=== PATIENT | male | born 1935 | race Caucasian/White ===

== ENCOUNTER → 2019-08-07 13:46 | Outpatient (BNVA) | payer MEDICARE, SELFPAY | PROVIDERS: Family Provider Family Medicine; PCP Family Medicine; Visit Provider Urology | DX: C61 Malignant neoplasm of prostate (principal); N39.45 Continuous leakage; N49.2 Inflammatory disorders of scrotum | CPT/HCPCS: 81001 ==

== ENCOUNTER → 2019-11-22 14:35 | Outpatient (BNVA) | payer MEDICARE, SELFPAY | PROVIDERS: Family Provider Family Medicine; PCP Family Medicine; Visit Provider Internal Medicine | DX: Z11.59 Encounter for screening for other viral diseases (principal) | CPT/HCPCS: 87635 ==

== ENCOUNTER 2019-11-25 07:04 | Day surgery (SDC) | payer MEDICARE, SELFPAY ==
[2019-11-22 15:22] LABS: Hematocrit 44.1 % (42.0-52.0); Hemoglobin 14.6 g/dL (11.7-16.6); Mean Corpuscular HGB Conc 33.1 g/dL (30.0-36.0); Mean Corpuscular Hemoglobin 31.3 pg (28.0-34.0); Mean Corpuscular Volume 94.4 fL (80-94); Mean Platelet Volume 9.6 fL (7.4-10.4); Platelet Count 187 10^3/cmm (130-400); Red Blood Count 4.67 10^6/uL (4.1-5.3); Red Cell Distribution Width 12.7 % (12.1-15.1); White Blood Count 11.1 10^3/uL (4.0-10.0)
[2019-11-22 15:39] LABS: Anion Gap 13.5 (5-19); Blood Urea Nitrogen 25 mg/dL (8-23); Calcium 8.6 mg/dL (8.5-10.5); Carbon Dioxide 23 mmol/L (22-29); Chloride 105 mmol/L (98-107); Glucose 116 mg/dL (65-115); Osmolality Calculated 289 mOsm/kg (285-295); Potassium 4.5 mmol/L (3.5-5.1); Sodium 137 mmol/L (136-145)
[2019-11-22 15:41] LABS: INR 0.96 (0.8-1.2)
[2019-11-22 16:37] LABS: Slide Review Slide Review Perform
[2019-11-22 16:40] LABS: Absolute Segmented Neutrophil 4.1 10/cmm (1.6-7.1); Lymphocytes 50 %; Lymphocytes Absolute 6.3 10^3/cmm (1.2-3.4); Monocytes Absolute 0.4 10^3/cmm (0.1-0.6); Segmented Neutrophils 37 %; Total Cells Counted 100 (0-100)
[2019-11-22 16:41] LABS: Platelet Estimate Normal (Normal)
[2019-11-25] VITALS (23 sets, daily range): BP systolic 106–135; BP diastolic 55–71; PULSE 52–69; RESP 13–27; TEMP 36.6–36.9; O2SAT 93–97; BMI 34.0
--- NOTE | 2019-11-25 09:01 | XACV_ITS ---
Exam Room: [facility] Ht: 152 cm Wt: 108 kg BSA: 2.20 m2 Gender: Male : 1935 Any Known Allergies: No known allergies Exam Priority: Routine Procedure(s): Procedure Description: Diagnostic procedure Procedure Description: PCI procedure Procedure Description: Drug Eluting Coronary Stent Procedure Description: PTCA Procedure Description: Coronary Angiography Diagnostic Cath Status: Elective Diagnostic Findings LM has minor luminal irregularities. CX gives rise to 2 OM branches. There is no significant stenosis noted in the left circumflex system. pLAD: Mild 20% stenosis, KELSEY: 3 flow. It gives rise to a large diagonal vessel which has no significant stenosis. The RCA is a large vessel. Mid Right Coronary Artery: Severe 95% stenosis, KELSEY: 3 flow. Left main gives rise to a ramus branch. This vessel does not have any significant stenosis. Coronary angiography shows right dominance. PCI Status: Elective PCI Indication: Other Interventional Findings Indication: Worsening angina and abnormal stress test. We engaged the RCA with JR4 guide catheter. A 0.014 run-through guidewire was used to cross the lesion. We used a 2.75 x 8 semi-compliant balloon to predilate the stenosis. This was followed by placement of a 3.5 x 12 mm drug-eluting stent. We postdilated the stent with the help of a 3.75 x 8 mm NC balloon. At this time final angiogram was performed that showed excellent stent expansion, KELSEY-3 flow and no residual stenosis. Guidewire and guide catheter were removed. Radial sheath was removed and TR band was applied to obtain hemostasis. Mid Right Coronary Artery: 95% stenosis treated with AB TREK 2.75X8 RX BALLOON, MATTHEW Santamaria MADELINE 3.5X12 DEMARIO, and MDJosé Antonio WHITAKER EUPHORA RX [id number] BALLOON. 0% residual stenosis, KELSEY: 3 flow. Conclusions There is severe single vessel coronary artery disease. Mid Right Coronary Artery was treated with two Balloon and Drug Eluting Stent. Recommendations Aspirin and Plavix for at least 1 year. High intensity statin therapy with atorvastatin 40 mg daily. Interventional RX Recommendation: PCI w/o planned CABG Diagnostic RX Recommendation: PCI w/o planned CABG Anticoagulation: Heparin Pressures Phase:Rest AO : 107 mmHg / 61 mmHg ( 82 mmHg ) @ 4:30:00 AM 119 mmHg / 119 mmHg ( 94 mmHg ) @ 4:34:00 AM 118 mmHg / 70 mmHg ( 92 mmHg ) @ 4:39:00 AM 123 mmHg / 63 mmHg ( 89 mmHg ) @ 4:53:00 AM Clinical Evaluation EBL: 5mL-10mL Procedural Details Procedure Consent Obtained. Pre-Procedure Time Out. Identified patient by full name and date of as verbalized by the patient/guarantor. Does the consent match the physician's order: Yes. Accurate & Complete Informed Consent: Yes. Inpatient/Outpatient History & Physical on Chart: Yes. If H&P is completed, is and addenduem needed: N/A; If yes, is the addendum complete: N/A. Visualize and Verify Site with Patient/Guarantor: N/A. Relevant Radiology Images available: Yes. Pre-op teaching completed and patient verbalized understanding. The risks, benefits, and alternatives of sedation and/or procedure were discussed by physician. The patient agrees to continue. Procedure started. Correct patient, site and procedure confirmed by cath team. PERRLA. Strong, equal hand history teacher bilaterally. Lungs clear x 5 lobes. IV Site on Arrival: 18 gauge in the left anticubital. IV Fluids: 0.9% NaCl at KVO. 0 mL infused prior to lab associate. Oxygen started at 2liters/min via nasal canula. right groin was prepped with chloroprep then draped in the usual sterile fashion. right radial was prepped with chloroprep then draped in the usual sterile fashion. Physician notified. Baseline sample Acquired. HR: 80 BPM. Physician arrived. Physician scrubbed in. Immediate Pre-Procedure Time Out. Correct Patient: Yes; Correct Procedure: Yes; Correct Site: Yes; Correct Patient Position: Yes; Correct Supplies: Yes; Dried Flammable Prep: Yes; Blood Products Available: No;. Lidocaine 1% infiltrated to the right radial. Equipment: 6F - Radial. Cardiac Cath Pack. FM Global Manifold Kit Model BT 2000. Heparinized Saline (2 units/mL), 1000 mL bag. Arterial access obtained. A 5 norwegian TIG catheter in over wire. Multiple views taken of right coronary artery. Catheter out. A 5 norwegian JL4 catheter in over wire. Multiple views taken of left coronary artery. Catheter out. Patient's family unavailable. Inventory is TR 180cm Runthrough NS extra floppy 0.014 wire. 6 norwegian JR 4 guide catheter was inserted over the wire. Runthrough guidewire was advanced through the guide catheter to lesion in the mid RCA. ACT drawn. Results 306 seconds. Therapeutic limits - pre-heparin administration 90-150 seconds and monitoring heparin during a vascular procedure >250 seconds. Inflation number : 1 A AB TREK 2.75X8 RX BALLOON was prepped and advanced across the Mid RCA , then inflated to 8 RAFAT for 0:23 seconds. Inflation number: 2 The AB TREK 2.75X8 RX BALLOON was reinflated across the Mid RCA, to 10 RAFAT for 0:21 seconds. Balloon out. Patient's family updated. Inflation Number : 3 A MATTHEW Santamaria MADELINE 3.5X12 DEMARIO -Lot Number# [id number] expiration 05/17/21 was prepped and advanced across the Mid RCA. The stent was deployed at 12 RAFAT for 0:19 seconds. Stent balloon out over wire. Angiography performed. Inflation number : 4 A MATTHEW WHITAKER EUPHORA RX [id number] BALLOON was prepped and advanced across the Mid RCA , then inflated to 16 RAFAT for 0:21 seconds. Balloon out. Wire out. Guide catheter out. TR band placed. Hemostasis obtained. A TR Band was successful obtaining hemostatsis at the Right Radial artery insertion site. Post Procedure: Pulses reassessed and unchanged. PERRLA. Strong, equal hand history teacher bilaterally. No VTE prophylaxis required. Fluoro: 10:06. Contrast type used: Omnipaque 300 mgI/mL, 500 mL bottle. [id number]. Complications: none. Estimated blood loss: 5mL-10mL. Procedure completed. Patient transferred by bed to CPRU. Medication's Wasted: Nitro = 49.8 mg. Medication's Wasted: Lidocaine 1% = 18 mL. Medication's Wasted: Heparin = 3000 units. Total IV fluids: 100 mL. PCI Indication: New Onset Angina. Post-op diagnosis: severe mid rca stenosis. Vital chart was stopped. Site: Right Radial artery Sheath Size: 6 Fr Hemostasis Method: TR Band Hemostasis Success: Successful Procedure Medications Start: 9:22 AM Stop: 9:22 AM Medication: Versed Amount: 1 mg Route: I.V. Start: 9:22 AM Stop: 9:22 AM Medication: Fentanyl Amount: 50 mcg Route: I.V. Start: 9:25 AM Stop: 9:25 AM Medication: Nitrogylcerin Amount: 200 mcg Route: I.A. Start: 9:27 AM Stop: 9:27 AM Medication: Heparin Amount: 5000 units Route: I.V. Start: 9:35 AM Stop: 9:35 AM Medication: Versed Amount: 1 mg Route: I.V. Start: 9:35 AM Stop: 9:35 AM Medication: Fentanyl Amount: 50 mcg Route: I.V. Start: 9:39 AM Stop: 9:39 AM Medication: Heparin Amount: 2000 units Route: I.V. Start: 9:49 AM Stop: 9:49 AM Medication: Heparin Amount: 1000 units Route: I.V. Start: 9:50 AM Stop: 9:50 AM Medication: Plavix Amount: 600 mg Route: P.O. Start: 9:50 AM Stop: 9:50 AM Medication: Aspirin Amount: 325 mg Route: P.O. I, the attending physician, have reviewed and verified all procedure medications. Yes, all medications given per verbal order History/Risk Factors Hypertension: No Dyslipidemia: No Peripheral Arterial Disease (PAD): No Myocardial Infarction (TX): No Obesity: Yes Renal Disease: No Prior Interventions PCI: No CABG: No Valve Surgery: No Report Signatures Finalized by:Andrea Arrieta MD on 11/25/2019 5:12:45 PM
--- NOTE | 2019-11-25 09:12 | W.PM.OPSUD ---
Surgery/Procedure H&P Update DATE OF PROCEDURE: November 25, 2019 DATE H&P PERFORMED: 11/07/19 H&P UPDATE INFORMATION: I have reviewed H&P completed within last 30 days and I have examined patient prior to procedure CHANGES TO PREVIOUS DOCUMENTATION: Patient was having episodes of chest pain and had a stress test in the past with TID and circumflex territory ischemia. We had recommended doing a coronary angiogram with possible intervention but patient wanted to think about it. Given he was still having chest pain episodes, he has decided to undergo the coronary angiogram with possible intervention. I described in detail the benefits and risks associated with the procedure, including bleeding, infection, abnormal heart rhythm,stroke, heart attack, and . Patient understands the risks and wants to proceed with the procedure. PREOP DIAGNOSIS: Typical chest pain/abnormal stress test PRIMARY INDICATION FOR PROCEDURE: Typical chest pain/abnormal stress test PLANNED PROCEDURE: Operation Date: 11/25/19 08:30 Proposed Procedures p Cardiac Catheterization left and right(Bilateral) - Andrea Arrieta M.D PATIENT REASSESSED PRIOR TO SEDATION, WITH NO CHANGE NOTED: Yes PHYSICAL EXAM: alert, oriented x 3 and clear to auscultation bilaterally AIRWAY EVAL/ANESTHESIA PLAN: normal airway, ASA II, Risks, benefits & alternatives of sedation and/or procedure discussed and Patient agrees to continue as planned
--- NOTE | 2019-11-25 10:17 | PC.CHAP ---
Pastoral Care Encounter/Spiritual Assessment Type of Contact [] Declined hr leader visit [] Patient/Family/Request visit [] Outpatient visit [] Follow-up visit [] Physician referral [] Code/Alert [x] Routine visit [] Staff referral [] Actively dying [] Patient sleeping [] Family support [] [] Out of room [] Palliative care [] [] Receiving care in room [] Pre-surgical visit [] Trauma [] Long length of stay [] ICU visit [] Other: Relational/Emotional Strength [] Patient feels connected with others/family/visitors/staff [] Distress [] Loneliness/isolation [] Abandonment Spirituality of Patient [] Person of Teri [] Attends Zoroastrian of their Teri [] Believes in Prayer [] Reads Bible or Jainism materials [x] There are Spiritual issues to be addressed Farm Loan Inspector Interventions [] Prayer [x] Active listening [x] Non-anxious presence [x] Spiritual/emotional support [] Crisis/trauma care [] Spiritual counseling [] Bereavement support [] Provided bereavement packet [] Provided Bible/devotional materials [] Provided toy/stuffed animal, coloring book to patient or family member [] Provided Communion [] Anointing/[place] [] Salvation [x] Completed spiritual assessment [] Other: Impact on Illness or Injury [] Angry [] Fearful [x] Anxious [] Often cries [] Exhaustion [] Unable to work [] Unable to attend rastafari [] Unable to walk/stand [] Unable to read [] Unable to drive [] Unable to eat/drink [] Unable to sleep [] Unable to be with family [] Patient intubated [] Other: Summary Patient stated that he didn't need anything from the chaplains and declined prayer. He stated that he was hoping to get this over with as soon as possible . Farm Loan Inspector visited with patient for a few minutes and told him that if he needed anything from the chaplains that he could let his nurse know and she would contact us. Patient visited by Farm Loan Inspector Hector Noriega. Time spent with patient 8 minutes
[2019-11-25] MEDS: atorvastatin 40 mg Tablet PO (19:14)
--- NOTE | 2019-11-25 21:59 | PC.NURSE ---
Patient does not have any complaints at this time. Right wrist site WNL. Pulse present. VSS. Will monitor.
[2019-11-26 00:22] VITALS: BP 94/79; PULSE 63; RESP 16; TEMP 36.6; O2SAT 94
--- NOTE | 2019-11-26 01:07 | PC.NURSE ---
Patient ambulated in the asif earlier. Patient is now resting with eyes closed. Will monitor.
--- NOTE | 2019-11-26 03:08 | PC.NURSE ---
Patient has no complaints at this time. Will monitor.
[2019-11-26 04:25] VITALS: BP 115/77; PULSE 59; RESP 24; TEMP 36.6; O2SAT 97
[2019-11-26 05:05] LABS: Basophils # 0.1 10^3/uL (0.0-0.1); Basophils % 0.5 %; Eosinophils # 0.1 10^3/uL (0.0-0.8); Eosinophils % 1.3 %; Hematocrit 42.5 % (42.0-52.0); Hemoglobin 13.6 g/dL (11.7-16.6); Lymphocytes # 4.6 10^3/uL (0.8-4.8); Lymphocytes % 45.1 %; Mean Corpuscular Volume 96.8 fL (80-94); Mean Platelet Volume 10.1 fL (7.4-10.4); Monocytes # 0.7 10^3/uL (0.2-0.9); Neutrophils # 4.63 10^3/uL (1.8-7.7); Neutrophils % 45.6 %; Nucleated Red Blood Cells % 0 %; Platelet Count 143 10^3/cmm (130-400); Red Blood Count 4.39 10^6/uL (4.1-5.3); Red Cell Distribution Width 12.7 % (12.1-15.1); White Blood Count 10.2 10^3/uL (4.0-10.0)
[2019-11-26 05:31] LABS: Anion Gap 15.5 (5-19); Blood Urea Nitrogen 20 mg/dL (8-23); Calcium 8.5 mg/dL (8.5-10.5); Carbon Dioxide 21 mmol/L (22-29); Chloride 104 mmol/L (98-107); Glucose 107 mg/dL (65-115); Osmolality Calculated 285 mOsm/kg (285-295); Potassium 4.5 mmol/L (3.5-5.1); Sodium 136 mmol/L (136-145)
[2019-11-26] MEDS: clopidogrel 75 mg Tablet PO (08:04)
[2019-11-26] MEDS: aspirin 81 mg EC Tablet PO (08:05)
--- NOTE | 2019-11-26 08:45 | PM.SDS ---
Short Stay Summary Providers Date of Admit/Discharge: 11/26/19 Attending Provider: Andrea Arrieta M.D Primary Care Provider: Kg Wright DO Chief Complaint: the [facility] HPI History of Present Illness Eric Bailey is a 84 year old male past medical history of hypertension was scheduled to have coronary angiography with possible intervention because he was having continued chest pain symptoms on exertion and had a prior stress test showing ischemia. Recently he had noted more frequent chest pain symptoms. In the past coronary angiography was offered to him but he did not want to proceed with it however because of increasing symptoms he decided to undergo coronary intervention angiography with possible intervention. We performed coronary angiography that showed 95% stenosis in mid RCA. He underwent percutaneous coronary intervention with a 3.5 x 12 mm drug-eluting stent. He had excellent result with KELSEY-3 flow and no residual stenosis. Patient stayed overnight post procedure and has been stable. This morning he denies any complaints of chest pain, shortness of breath or palpitations. He is on aspirin, Plavix and atorvastatin. His blood pressure tends to run on the lower side. His heart rate is also in late 50s to 60. His right radial access site is normal without any evidence of hematoma. Patient is ready for discharged and will be discharged on aspirin, Plavix and atorvastatin. Review of Systems Narrative: CONSTITUTIONAL: No fever chills weight loss or gain or night sweats. [] HEENT: Normocephalic, atraumatic.[] RESPIRATORY: No cough, sputum, hemoptysis or wheezing.[] CARDIOVASCULAR: No shortness of breath, chest pain, PND, orthopnea, lower extremity edema, presyncope or syncope. [] GI: no nausea vomiting diarrhea. [] WATCHER LOOKOUT TOWER: No numbness, tingling, weakness or loss of function in any part of the body. [] MUSCULOSKELETAL: No knee or joint pain or rashes. [] Home Meds/Allergies Home Medications and Allergies Allergies Allergy/AdvReac Type Severity Reaction Status Date / Time No Known Allergies Allergy Verified 11/19/19 10:03 PFSH Acute PFSH: Medical History Cellulitis of scrotum Colovesical fistula HTN (hypertension) Prostate cancer Urinary incontinence Surgical History Hx of cholecystectomy Hx of knee surgery Hx of prostatectomy Hx of resection of large bowel Family History Father CAD (coronary artery disease) Social History Smoking and tobacco status: never smoked Alcohol intake: current Alcohol intake frequency: holidays/special occasions only Adopted: No Caregiver/support person: No Lives independently: Yes Marital status: Current occupational status: retired History of recent travel: No Vitals/I&O/Wt Last Vital Signs Temp 98 F 11/26/19 04:25 Pulse 59 L 11/26/19 04:25 Resp 24 H 11/26/19 04:25 BP 115/77 11/26/19 04:25 Pulse Ox 97 11/26/19 04:25 11/25/19 11/26/19 11/26/19 22:59 06:59 14:59 Intake Total 240 / 480 300 / 780 480 / 480 Output Total 700 / 1250 375 / 1625 300 / 300 Balance -460 / -770 -75 / -845 180 / 180 Weight last 48 hrs Weight 237 lb 7 oz Physical Exam Narrative: EXAM NARRATIVE: GENERAL: Patient is alert, awake and oriented x3. [] NECK: No jugular vein distension. [] HEENT: No cyanosis. No icterus. No pallor. [] HEART: Regular S1 and S2. No murmur, rub or gallop. [] LUNGS: Clear to auscultate bilaterally. [] ABDOMEN: Soft, nontender and nondistended. Positive bowel sounds. No guarding, rebound or tenderness. [] CENTRAL NERVOUS SYSTEM: Grossly nonfocal. [] EXTREMITIES: Lower extremities with no edema bilaterally. Pulses palpable in the lower extremities, both dorsalis pedis and posterior tibial. [] Hospital Course Admission Diagnoses: Typical chest pain/worsening angina/abnormal stress test Hospital Course: We performed coronary angiography that showed 95% stenosis in mid RCA. He underwent percutaneous coronary intervention with a 3.5 x 12 mm drug-eluting stent. He had excellent result with KELSEY-3 flow and no residual stenosis. Patient stayed overnight post procedure and has been stable. This morning he denies any complaints of chest pain, shortness of breath or palpitations. He is on aspirin, Plavix and atorvastatin. His blood pressure tends to run on the lower side. His heart rate is also in late 50s to 60. His right radial access site is normal without any evidence of hematoma. Patient is ready to be discharged and will be discharged on aspirin, Plavix and atorvastatin. SSS Data Data Completed and Pending: Completed Studies During Hospitalization Category Date Time Status ROADS AND PARKING LOTS SWEEPER OPERATOR request for service Routin e Exams 11/25/19 09:01 Completed Diagnoses at Discharge Discharge Diagnosis (1) Coronary artery disease: Status: Acute (2) HTN (hypertension): Status: Acute (3) S/P coronary angioplasty: Status: Acute Problem details: Severe RCA stenosis s/p PCI with DEMARIO X 1 Discharge Plan Discharge Patient Disposition: Home Condition: Stable Prescriptions: New atorvastatin 40 mg Tablet 40 mg PO BEDTIME Qty: 90 RF: 3 clopidogrel 75 mg Tablet 75 mg PO DAILY Qty: 90 RF: 2 aspirin 81 mg Tablet,Delayed Release (Dr/Ec) 81 mg PO DAILY Qty: 90 RF: 3 Continued nitroglycerin 0.4 mg tablet, sublingual 0.4 mg SUBLINGUAL Q5M PRN (Reason: chest pain) Qty: 50 RF: 2 Discontinued aspirin 325 mg tablet 325 mg PO DAILY RF: 0 Discharge Orders: Discharge Order (Routine); Ordered 11/26/19 Ordered By: Andrea Arrieta Referrals: Andrea Arrieta M.D [Physician] - 1 month (Please, follow-up with Dr. Arrieta on at 3:45p.m. If you have any questions or need to reschedule. Please call ) Alyssa Contreras FNP [Nurse Practitioner] - 7-10 days (Please, follow-up with Alyssa Contreras on Dec.02 at 9:00a.m. If you have any questions or need to reschedule. Please call ) Discharge Diet: Cardiac Discharge Activity: Resume usual activity Patient Instructions: Aspirin (By mouth), Atorvastatin (By mouth), Clopidogrel (By mouth), Left Heart Catheterization (DC), Hypertension (DC), Post Angiogram Home Care Instructions Activity Restrictions/Additional Instructions: Please do not lift more than 5 pounds of weight for the next 5 days Attestations Medical Necessity Statement*: Care not expected to cross 2 midnights. Time Spent in Patient Care*: greater than 30 min Status at Discharge: Cognitive status at discharge: cognitively intact, Behavioral status at discharge: cooperative, Functional status at discharge: independent ambulation Overall status at discharge: patient is back to baseline Quality Metrics Clinical Quality Measures: During this hospital stay, did patient experience: None Coding Level of Care Code Acute Preschool Substitute Teacher for Darinel Fwd Diagnoses Coronary artery disease I25.10 HTN (hypertension) I10 S/P coronary angioplasty Z98.61
[2019-11-26 09:05] VITALS: BP 115/77; PULSE 59; RESP 24; TEMP 36.6; O2SAT 97
== END 2019-11-26 10:29 | disposition home or self-care (01) ==
LOC: CCL 07:04 → CSU 07:27
PROVIDERS: PCP Family Medicine; Visit Provider Internal Medicine
DX: I25.10 Atherosclerotic heart disease of native coronary artery without angina pectoris (principal); I10 Essential (primary) hypertension; Z98.61 Coronary angioplasty status; Z85.46 Personal history of malignant neoplasm of prostate
CPT/HCPCS: 12345; 36415; 80048; 85007; 85025; 85347; 85610; 93454; C1725; C1769; C1874; C1887; C1894; C9600; J1644; J2250; J3010; J3490; J7030; Q9967

== ENCOUNTER → 2019-12-03 10:04 | Outpatient (BNVA) | payer MEDICARE, SELFPAY | PROVIDERS: PCP Family Medicine; Visit Provider Nurse Practitioner Family | DX: I25.119 Atherosclerotic heart disease of native coronary artery with unspecified angina pectoris (principal) | CPT/HCPCS: 80048 ==

== ENCOUNTER → 2019-12-05 09:52 | Outpatient (BNVA) | payer MEDICARE, SELFPAY | PROVIDERS: PCP Family Medicine; Visit Provider Family Medicine | DX: R07.89 Other chest pain (principal); M94.0 Chondrocostal junction syndrome [Tietze] | CPT/HCPCS: 71046 ==

== ENCOUNTER → 2020-03-03 12:17 | Outpatient (BNVA) | payer MEDICARE, SELFPAY | PROVIDERS: PCP Family Medicine; Visit Provider Family Medicine | DX: E03.9 Hypothyroidism, unspecified (principal); I10 Essential (primary) hypertension; R10.9 Unspecified abdominal pain; K57.30 Diverticulosis of large intestine without perforation or abscess without bleeding; Z98.890 Other specified postprocedural states; H61.23 Impacted cerumen, bilateral; R10.10 Upper abdominal pain, unspecified | CPT/HCPCS: 84439; 84443; 85025 ==

== ENCOUNTER 2020-03-30 09:55 | Outpatient (CLI) | payer MEDICARE, SELFPAY ==
--- NOTE | 2020-03-30 11:30 | CT_ITS ---
WS: [id number] CT ABDOMEN PELVIS TECHNIQUE: Noncontrast CT of the abdomen and contrast-enhanced CT of the abdomen and pelvis with philippe nal and sagittal reformatted images. CLINICAL INFORMATION: abdominal pain COMPARISON: CT 01/07/2017 and 11/24/2015 DLP: 1661.[address] scans at [facility] use at least one of these dose optimization techniques: automat ed exposure control; mA and/or kV adjustment per patient size (includes targeted exams where dose is matched to clinical indication); or iterative reconstruction. FINDINGS:Mild circumferential wall thickening involving the right hepatic flexure. Recommend correlat ion for colitis. Colon is otherwise unremarkable. Mild diffuse infiltration liver. Cholecystectomy clips. A few small hepatic cysts. Adrenal glands are normal. No hydronephrosis. Small esophageal hiatal hernia. Lung bases are well aerated. Small splenu le. Normal spleen. Prior postoperative changes partial resection with anastomosis. Prior prostatectom y. Mild sigmoid constipation. Normal caliber abdominal aorta. Mild aortic calcification. No abdominal or pelvic lymphadenopathy. Ti ny fat-containing umbilical hernia. Small bladder diverticulum measuring bilateral ureteral bilateral bladder diverticuli measuring 14 mm on the right and 18 mm on the left. Mild disc space narrowing L5 -S1. CT/CT abdomen pelvis wo/w [id number] IMPRESSION: 1. Mild circumferential wall thickening involving the right hepatic flexure. R ecommend correlation for colitis. 2. Mild diffuse fatty infiltration liver. Cholecystectomy clips. 3. Prior postoperative changes prostatectomy and sigmoid colon anastomosis. Mi ld sigmoid constipation. 4. Small bladder diverticuli described above measuring 1.5-2.0cm unchanged fro m previous. 5. No hydronephrosis in either kidney. 6. Small esophageal hiatal hernia. 7. No abdominal or pelvic lymphadenopathy.
[2020-03-30] MEDS: iohexol 300 mg/mL 50 mL Btl PO (11:34)
[2020-03-30 12:50] LABS: Blood Urea Nitrogen 17 mg/dL (8-23)
== END 2020-03-30 09:56 | disposition home or self-care (01) ==
PROVIDERS: PCP Family Medicine; Visit Provider Family Medicine
DX: R10.9 Unspecified abdominal pain (principal); K44.9 Diaphragmatic hernia without obstruction or gangrene; N32.3 Diverticulum of bladder; K59.00 Constipation, unspecified; K76.0 Fatty (change of) liver, not elsewhere classified
CPT/HCPCS: 74178; 82565; 84520; Q9967

== ENCOUNTER → 2020-09-03 11:25 | Outpatient (BNVA) | payer MEDICARE, SELFPAY | PROVIDERS: PCP Family Medicine; Visit Provider Family Medicine | DX: E78.5 Hyperlipidemia, unspecified (principal); B37.0 Candidal stomatitis; K57.30 Diverticulosis of large intestine without perforation or abscess without bleeding | CPT/HCPCS: 80053; 80061 ==

== ENCOUNTER → 2020-12-29 08:40 | Outpatient (BNVA) | payer MEDICARE, SELFPAY | PROVIDERS: PCP Family Medicine; Visit Provider Surgery | DX: Z11.52 Encounter for screening for COVID-19 (principal); Z20.822 Contact with and (suspected) exposure to COVID-19 | CPT/HCPCS: 87635 ==

== ENCOUNTER 2021-01-04 05:45 | Day surgery (SDC) | payer MEDICARE, SELFPAY ==
[2021-01-01 16:24] VITALS: BMI 28.8
[2021-01-04] VITALS (8 sets, daily range): BP systolic 115–153; BP diastolic 57–74; PULSE 47–54; RESP 17–20; TEMP 36.4–36.7; O2SAT 95–98
[2021-01-04] MEDS: sodium chloride 0.9% 1,000 ML 30 ML IV (06:20)
--- NOTE | 2021-01-04 06:37 | ECG_ITS ---
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 Measurements Intervals Dexter Rate: 44 P: 173 AL: 202 QRS: 208 QRSD: 93 T: 141 QT: 476 QTc: 408 Interpretive Statements ECTOPIC ATRIAL BRADYCARDIA POSSIBLE RIGHT VENTRICULAR HYPERTROPHY [SOME/ALL OF: PROMINENT R IN V1, LATE TRANSITION, RAD, MISTY, SSS] POSSIBLE ANTERIOR MYOCARDIAL INFARCTION , OF INDETERMINATE AGE [30 ms Q WAVE IN V3/V4, OR R < 0.2 mV IN V4] Compared to ECG 03/24/2016 14:07:12 Bradycardia, nonsinus now present Sinus bradycardia no longer present Myocardial infarct finding still present Electronically Signed On 01-04-2021 16:48:53 GEOGRAPHY HEAD by Andrea Arrieta M.D. [id number]
--- NOTE | 2021-01-04 06:49 | W.PM.OPSUD ---
Surgery/Procedure H&P Update DATE OF PROCEDURE: January 04, 2021 DATE H&P PERFORMED: 12/29/20 H&P UPDATE INFORMATION: I have reviewed H&P completed within last 30 days, I have examined patient prior to procedure and No changes to prior documentation PREOP DIAGNOSIS: Right inguinal hernia PLANNED PROCEDURE: Operation Date: 01/04/21 07:00 Proposed Procedures p Open Right Inguinal Hernia Repair [id number] K40.90(Right) - Mukesh Corrigan MD
--- NOTE | 2021-01-04 06:56 | ANES.PREANE2 ---
Pre-Anesthetic Assessment Pre-Anesthetic Assessment: Height/Weight: Height 1.78 m Weight 91.172 kg Temp Pulse Resp BP Pulse Ox 98.0 F 48 L 17 153/74 98 01/04/21 06:06 01/04/21 06:06 01/04/21 06:06 01/04/21 06:06 01/04/21 06:06 Preop Diagnosis: Right inguinal hernia Proposed Procedure: Operation Date: 01/04/21 07:00 Proposed Procedures p Open Right Inguinal Hernia Repair [id number] K40.90(Right) - Mukesh Corrigan MD Familial anesthetic complications: none Was Beta Emilia taken within 24 hours: Yes Was Clonidine taken within 24 hours: N/A Last intake: Intake Last Liquid Date 01/03/21 Last Liquid Time 18:00 Last Solid Date 01/03/21 Last Solid Time 16:00 Social: Social History: No alcohol and No tobacco Exam: Pre-Anes Outpt Exam: alert, oriented x 3, clear to auscultation bilaterally and regular rate & rhythm Airway: MP: 3 Dentition: Partials Additional comments: patient states he has thrush, he is taking nystatin. Informed patient of potential risk of spread of thrush to lower respiratory tract, even with use of LMA. States he would like to proceed with surgery despite risk CV/HEM: CV/HEM: CAD and HTN Comments: stent > 1 year ago, now off plavix Anesthetic Plan: ASA status: 3 Anesthesia: General Risk of > 500 ml blood loss (7ml/kg in children): No Meds/Allergies Current Medications: Current Medications Generic Name Dose Route Start Last Admin Trade Name Freq PRN Reason Stop Dose Admin Sodium Chloride 1,000 mls @ 30 ml s/hr 01/04/21 06:00 01/04/21 06:20 Sodium Chloride 0.9% IV 01/05/21 05:59 30 mls/hr .Q24H RAFA Administration PFSH Anesthesia PFSH: Medical History Cellulitis of scrotum Colovesical fistula Coronary artery disease Diverticula of colon Diverticulitis HTN (hypertension) Prostate cancer Urinary incontinence Surgical History History of colon surgery Hx of cholecystectomy Hx of knee surgery Hx of prostatectomy Hx of resection of large bowel S/P coronary angioplasty Severe RCA stenosis s/p PCI with DEMARIO X 1 Family History Father CAD (coronary artery disease) Social History Alcohol intake: current Alcohol intake frequency: holidays/special occasions only Adopted: No Caregiver/support person: No Lives independently: Yes Marital status: Current occupational status: retired History of recent travel: No Data Anesthesia Cardiac Studies: No Data to Display
[2021-01-04] MEDS: lidocaine 1% INJ 20 mL XX (07:34)
--- NOTE | 2021-01-04 08:31 | PM.OP ---
Operative Report Date of procedure: January 04, 2021 Pre-op Diagnosis: Symptomatic reducible right inguinal hernia Post-op Diagnosis: Right reducible direct and indirect inguinal hernia Procedure Done: Open repair reducible right direct and indirect with Bard mesh and plug Specimens removed/disposition: Hernia sac Surgeon: Mukesh Corrigan Anesthesia: General Condition: stable Disposition: PACU Procedure: A 5 cm incision was made over the right inguinal canal using 15 blade, the subcutaneous tissue, Charisse's fascia divided using electrocautery until the external oblique aponeurosis was identified. Using a 15 blade, a small opening was made in the external oblique aponeurosis along the length of the fibers, this was grasped with hemostats and opened using Metzenbaum scissors medially to the external ring and laterally beyond the internal ring. The contents of inguinal canal were dissected free from the wall and a Rogers drain was placed around it. There was direct hernia noted. The cremasteric muscles were divided until the hernia sac could be dissected free from the spermatic cord, sac was opened, contents were reduced and a 2-0 Vicryl pursestring was placed in the internal ring and the excess sac was excised. A small plug was placed in the internal ring and sutured using 2-0 Prolene [id number] suture. A Proloop mesh was introduced and using 2-0 Prolene suture the medial edge of the mesh were sutured to the fascia overlying the pubic tubercle, and the suture was run to approximate the inferior edge of the mesh to the shelving edge of inguinal ligament to a point beyond the internal ring. Interrupted 2-0 Prolene suture was used to approximate the superior edge of the mesh to the internal oblique muscles and the 2 limbs of the mesh was sutured lateral to the internal ring and approximated to the internal oblique muscle. The wound was copiously irrigated with saline, good hemostasis noted and the external oblique aponeurosis was closed with running 2-0 Vicryl suture, Charisse's fascia approximated using running 3-0 Vicryl suture, and skin was closed using running subcuticular 4-0 Monocryl suture and Dermabond. 40 mL of 0.5% Marcaine was infiltrated around the incision. The patient was extubated and transferred recovery room in stable condition.
--- NOTE | 2021-01-04 08:47 | SUR.PHASEI ---
pt awake alert talkative denies pain and nausea, pt requests pancakes and coffee, VSS, rt lower abd incision D/I scrotal fluffs and support brief, pt on RA trial.
[2021-01-04] MEDS: HYDROcodone-acetaminophen 5-325 mg Tablet 1 TAB PO (09:10)
--- NOTE | 2021-01-04 13:49 | ANE.PACU2 ---
Inpatient post-anesthesia follow up: Airway intact: Yes Vital signs: Temperature 97.6 F Pulse Rate 53 Respiratory Rate 17 Blood Pressure 136/60 Pulse Oximetry 96 Oxygen Delivery Me thod Room Air Oxygen Flow Rate 8 Fraction of Inspir ed Oxygen Hydration adequate: Yes Nausea and vomiting: No Pain level: 2 Mental status: Baseline
== END 2021-01-04 09:52 | disposition home or self-care (01) ==
PROVIDERS: PCP Family Medicine; Visit Provider Surgery
PROC: (CPT 49505; principal; 2021-01-04 07:00)
DX: R10.31 Right lower quadrant pain (principal); K40.90 Unilateral inguinal hernia, without obstruction or gangrene, not specified as recurrent; I10 Essential (primary) hypertension; I25.10 Atherosclerotic heart disease of native coronary artery without angina pectoris; Z90.49 Acquired absence of other specified parts of digestive tract; Z85.46 Personal history of malignant neoplasm of prostate; Z87.19 Personal history of other diseases of the digestive system; Z82.49 Family history of ischemic heart disease and other diseases of the circulatory system
CPT/HCPCS: 49505; 88302; 93005; J0690; J2370; J2704; J3010; J3490; J7030

== ENCOUNTER → 2021-05-11 11:44 | Outpatient (BNVA) | payer MEDICARE, SELFPAY | PROVIDERS: PCP Family Medicine; Visit Provider Family Medicine | DX: E03.9 Hypothyroidism, unspecified (principal); I25.10 Atherosclerotic heart disease of native coronary artery without angina pectoris | CPT/HCPCS: 80053; 84443; 85025 ==

== ENCOUNTER 2021-05-28 14:24 | Outpatient (CLI) | payer MEDICARE, SELFPAY ==
--- NOTE | 2021-05-28 14:38 | CT_ITS ---
WS: [id number] Exam: CT head wo con* [id number] Date/Time of Exam: 05/28/2021 2:40 PM Reason For Exam: altered mental status DLP: 1130.[address] scans at [facility] [place] use at least one of these dose optimization techniques: automated e xposure control; mA and/or kV adjustment per patient size (includes targeted exams where dose is matc hed to clinical indication); or iterative reconstruction. No sign of acute intracranial bleed or space-occupying mass. There is diffuse cerebral and cerebellar atrophy with volume loss. The ventricles and basal cisterns are normal in size. No extra-axial fluid collections are noted. The mastoids and facial sinuses are clear. The skull is unremarkable. Calcifi cations noted in the left optic globe.: 1. No sign of the mass or acute bleed. 2. Diffuse cerebral and cerebellar atrophy with volume loss.
== END 2021-05-28 14:25 | disposition home or self-care (01) ==
PROVIDERS: PCP Family Medicine; Visit Provider Family Medicine
DX: I63.9 Cerebral infarction, unspecified (principal)
CPT/HCPCS: 70450

== ENCOUNTER 2021-06-24 14:39 | Outpatient (CLI) | payer MEDICARE, SELFPAY ==
--- NOTE | 2021-06-24 15:00 | USCV_ITS ---
Eric Bailey Age: 85 Gender: M : 1935 Exam Date: 06/24/2021 14:53 Ordering Phys: Shira Paul MD Technologist: JUAQUIN Exam Location: [facility] [place] Indication: CVA [id number] AGO Risk Factors: Previous Vascular Surgery: Right Brachial BP: / Left Brachial BP: / Right Left Velocity (cm/s) Spectral Plaque Velocity (cm/s) Spectral Plaque Syst/Diast Broadening Syst/Diast Broadening 103.00/21.80 Prox CCA 120.90/ 19.70 127.80/18.30 Mid CCA 164.30/ 19.70 102.50/17.60 Distal CCA 127.80/ 16.40 54.50/ 11.30 Prox ICA 87.10 / 10.20 71.10/ 18.60 Mid ICA 83.20 / 18.80 66.70/ 19.70 Distal ICA 79.20 / 21.20 104.10 ECA 100.40 0.56 ICA/CCA 0.53 Antegrade Vertebral Antegrade 62.40/ 15.40 cm/s 54.10/ 10.20 cm/s Tri Subclavian Tri 102.9 118.3 0 0 FINDINGS Comparison:. 03/13/15 No significant elevation of systolic or diastolic velocities. Waveforms are normal. No significant amount of calcified plaque or intimal thickening identified. CONCLUSIONS Normal carotid doppler ultrasound. No interval change in stenosis since prior exam. Dr. Rosalinda Calix DO (Electronically Signed) Final Date: 24 June 2021 15:20 S
== END 2021-06-24 14:40 | disposition home or self-care (01) ==
PROVIDERS: PCP Family Medicine; Visit Provider Family Medicine
DX: Z86.73 Personal history of transient ischemic attack (TIA), and cerebral infarction without residual deficits (principal)
CPT/HCPCS: 93880

== ENCOUNTER 2022-01-27 12:19 | Outpatient (CLI) | payer MEDICARE, SELFPAY ==
--- NOTE | 2022-01-27 13:00 | FL_ITS ---
WS: [id number] FL barium swallow modifd [id number] REASON FOR EXAM: Difficulty swallowing. FLUOROSCOPY TIME: 2min 12.000123emf # OF SPOT FILMS: None FINDINGS: Examination was supervised by the speech therapy department. With the patient in the sitting upright position multiple consistencies of barium were swallowed and fluoroscopically monitored and recorded. No aspiration was identified. Detailed analysis and report will be rendered by the speech therapy department. FL/FL barium swallow modifd [id number] IMPRESSION: Modified barium swallow as above.
== END 2022-01-27 12:20 | disposition home or self-care (01) ==
LOC: RAD 12:20
PROVIDERS: PCP Family Medicine; Visit Provider Family Medicine
DX: R13.10 Dysphagia, unspecified (principal)
CPT/HCPCS: 74230; 92611

== ENCOUNTER → 2022-02-22 14:32 | Outpatient (BNVA) | payer MEDICARE, SELFPAY | PROVIDERS: PCP Family Medicine; Visit Provider Surgery | DX: R13.10 Dysphagia, unspecified (principal); R22.1 Localized swelling, mass and lump, neck | CPT/HCPCS: 99213 ==

== ENCOUNTER 2022-03-10 08:17 | Day surgery (SDC) | payer MEDICARE, SELFPAY ==
[2022-03-08 09:22] VITALS: BMI 28.8
[2022-03-10 08:29] VITALS: BP 161/98; PULSE 75; RESP 20; TEMP 36.7; O2SAT 97
[2022-03-10] MEDS: sodium chloride 0.9% 1,000 ML 30 ML IV (08:51)
--- NOTE | 2022-03-10 09:43 | PM.MISC ---
Miscellaneous Note Note: Patient having symptoms of possible airwa compromise with swelling/mass in neck. Scheduled for CT Scan of Neck on monday. Discussed with patient that it would be safer to further evaluate the nature of this mass, before undergoing an anesthetic. Patient in agreement, Surgeon in agreement. Will reschedule patient.
== END 2022-03-10 09:15 | disposition home or self-care (01) ==
LOC: GILAB 08:19
PROVIDERS: PCP Family Medicine; Visit Provider Surgery
DX: Z53.9 Procedure and treatment not carried out, unspecified reason (principal)
CPT/HCPCS: J7030

== ENCOUNTER 2022-03-14 14:51 | Outpatient (CLI) | payer MEDICARE, SELFPAY ==
--- NOTE | 2022-03-14 14:30 | CT_ITS ---
WS: [id number] CT NECK TECHNIQUE: Contrast-enhanced CT of the neck with coronal and sagittal reformatted images. CLINICAL INFORMATION: left neck mass pain COMPARISON: None. DLP: 274.[address] scans at [facility] use at least one of these dose optimization techniques: automated e xposure control; mA and/or kV adjustment per patient size (includes targeted exams where dose is matc hed to clinical indication); or iterative reconstruction. FINDINGS: Dental artifact degrades some images at the tongue base. Submandibular glands are normal. Normal paro tid glands. Normal posterior nasopharynx. Normal parapharyngeal fat. No evidence of supraglottic or g lottic mass. 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 Lung apices are well ae rated. Thyroid gland is normal in appearance. A few tiny micronodules in the LEFT thyroid gland. Normal posterior nasopharynx. Normal parapharyngeal fat. No evidence of supraglottic or glottic mass. Normal vallecula and piriform sinuses. Normal epiglottis. Normal subglottic airway. No cervical lymphadenopathy. Moderate spondylitic changes cervical spine. Disc space narrowing worse at C3-C4 and C4-C5 with disc osteophyte complexes. Moderate central canal stenosis C3-C4 with exagger ation normal cervical lordosis. Impingement on the cervical cord with multilevel moderate to severe f oraminal narrowing throughout the cervical spine. Mild mucosal thickening RIGHT maxillary sinus. Mast oid air cells are well aerated. CT/CT neck w con* [id number] IMPRESSION: 1. Normal salivary glands. 2. No evidence of cystic or solid mass in the neck. 3. No cervical lymphadenopathy. 4. Thyroid gland is normal in appearance. A few tiny low-attenuation nodules 1 to 2 mm. 5. Moderate spondylitic changes cervical spine with moderate central canal jayden nosis C3-C4 with indentation on cervical cord. Moderate to severe multilevel angeli ny foraminal narrowing with facet arthropathy. This can be followed up with MRI if indicated. 6. No evidence of supraglottic or glottic mass. 7. No other acute findings.
[2022-03-14] MEDS: iohexol 350 mg/mL 500 mL Btl (per mL) IV (15:32)
[2022-03-14 16:02] LABS: Blood Urea Nitrogen 21 mg/dL (8-23)
== END 2022-03-14 14:52 | disposition home or self-care (01) ==
PROVIDERS: PCP Family Medicine; Visit Provider Surgery
DX: R22.1 Localized swelling, mass and lump, neck (principal); E04.2 Nontoxic multinodular goiter
CPT/HCPCS: 70491; 82565; 84520; Q9967

== ENCOUNTER → 2022-04-05 15:50 | Outpatient (BNVA) | payer MEDICARE, SELFPAY | PROVIDERS: PCP Family Medicine; Visit Provider Surgery | DX: R13.10 Dysphagia, unspecified (principal); M48.02 Spinal stenosis, cervical region; Z90.49 Acquired absence of other specified parts of digestive tract | CPT/HCPCS: 99213 ==

== ENCOUNTER 2022-04-13 22:53 | Emergency (ER) | payer MEDICARE, SELFPAY ==
--- NOTE | 2022-04-13 22:56 | XRR_ITS ---
PROCEDURE INFORMATION: Exam: XR Chest Exam date and time: 04/13/2022 11:10 PM Age: 86 years old Clinical indication: Chest wall pain; Additional info: Cp TECHNIQUE: Imaging protocol: Radiologic exam of the chest. Views: 1 view. COMPARISON: CR XR chest 2V* [id number] 12/05/2019 10:06 AM FINDINGS: Lungs: Mild opacities at left lung base likely represent atelectasis. Pleural spaces: Unremarkable. No pleural effusion. No pneumothorax. Heart/Mediastinum: Unremarkable. No cardiomegaly. Diaphragm: Mild elevation of left hemidiaphragm. Bones/joints: No acute findings. XR/XR chest 1V portable [id number] IMPRESSION: Mild atelectasis left lung base. Otherwise, no acute findings.
--- NOTE | 2022-04-13 23:03 | ECG_ITS ---
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 Measurements Intervals [place] Rate: 75 P: 57 OK: 200 QRS: -22 QRSD: 94 T: 48 QT: 382 QTc: 427 Interpretive Statements SINUS RHYTHM POSSIBLE ANTERIOR MYOCARDIAL INFARCTION , OF INDETERMINATE AGE [30 ms Q WAVE IN V3/V4, OR R < 0.2 mV IN V4] Compared to ECG 01/04/2021 06:40:39 Bradycardia, nonsinus no longer present Atrial abnormality no longer present Myocardial infarct finding still present Electronically Signed On 04-14-2022 20:00:13 [employer] by Josse Brumfield M.D. [id number]
[2022-04-13 23:04] VITALS: BP 167/72; PULSE 79; RESP 22; TEMP 36.6; O2SAT 97; BMI 29.4
[2022-04-13 23:11] VITALS: PULSE 69; O2SAT 96
--- NOTE | 2022-04-13 23:12 | ED_ITS ---
HPI - Chest Pain General: Chief Complaint: Chest Pain Stated Complaint: CP\SOB Time Seen by Provider: 04/13/22 23:00 Source: patient Mode of arrival: ambulatory Limitations: no limitations History of Present Illness: 36-year-old male states he has been having chest pain since this evening. He states been a sharp pain in his left chest that radiates across to his chest as well he states its currently improved with only 1 out of 10 he states he had chopped wood earlier for his woodstove and felt like it could have been muscular. Denies any shortness of breath denies any nausea denies any diaphoresis. Associated symptoms: Deny abdominal pain, dyspnea, fever(s), nausea or vomiting Review of Systems Const: Denies: fever(s), chills, body aches or change in appetite Eyes: Denies: blurry vision or eye discomfort ENMT: Denies: throat pain or dental pain Card: Reports: chest pain Resp: Denies: dyspnea GI: Denies: abdominal pain, nausea, vomiting or diarrhea : Denies: dysuria Musc: Denies: neck pain or back pain Skin/Breast: Denies: rash Neuro: Denies: headache(s) Psych: Denies: depression Bar/Lymph: Denies: easy bruising All/Imm: Denies: urticaria PFSH ED PFSH: Medical History Cellulitis of scrotum Colovesical fistula Coronary artery disease Diverticula of colon Diverticulitis HTN (hypertension) Prostate cancer Urinary incontinence Surgical History History of colon surgery Hx of cholecystectomy Hx of knee surgery Hx of prostatectomy Hx of resection of large bowel S/P coronary angioplasty Severe RCA stenosis s/p PCI with DEMARIO X 1 Status post right inguinal hernia repair (~01/04/21) Family History Father CAD (coronary artery disease) Social History Smoking and tobacco status: former smoker Alcohol intake: current Alcohol intake frequency: holidays/special occasions only Adopted: No Caregiver/support person: No Lives independently: Yes Marital status: Current occupational status: retired History of recent travel: No Physical Exam Const: COMMON NORMALS: no acute distress, patient oriented x3 and healthy appearing HENMT: COMMON NORMALS: normocephalic and atraumatic HEAD & SCALP: normoc ephalic and atraumatic Eye: COMMON NORMALS: Equal, round and reactive pupils present and EOMs intact bilaterally PUPIL: Yes Equal, round and reactive pupils present Neck/C-Spine: COMMON NORMALS: full ROM and supple Chest: COMMONS NORMALS: normal inspection of the chest and normal palpation of entire chest wall Resp: COMMON NORMALS: normal respiratory effort, No retractions, No use of accessory muscles and clear to auscultation bilaterally AUSCULTATION: clear to auscultation bilaterally Cardio: COMMON NORMALS: regular rate, regular rhythm and No murmurs present (Cardio) RATE: regular rate RHYTHM: regular rhythm GI: COMMON NORMALS: Normal to inspection, nondistended, normoactive bowel sounds present, Soft to palpation, non-tender and no masses PALPATION: Yes Soft to palpation Extremity: COMMON NORMALS: normal to inspection and full ROM Neuro: COMMON NORMALS: patient oriented x3, moves all extremities and no focal motor deficits Psych: COMMON NORMALS: mental status grossly normal, Normal thought process present and cooperative THOUGHT PROCESS: Normal thought process present Skin: COMMON NORMALS: no rashes or lesions noted and no wounds GENERAL SKIN EXAM: no rashes or lesions noted Course Vital Signs: Vital signs: Vital Signs Temperature 97.9 F 04/13/22 23:04 Pulse Rate 77 04/14/22 01:11 Respiratory Rate 16 04/14/22 01:11 Blood Pressure 145/71 04/14/22 01:11 Pulse Oximetry 100 04/14/22 01:11 Oxygen Delivery Me thod 04/14/22 00:06 MDM - Chest Pain Medical Decision Making Patient presents for chest pain that is atypical in nature could be muscular from chopping wood earlier this troponins here are negative CTA is negative he is stable for discharge she is to follow-up with PCP and return if worsening. Lab Data 04/13/22 23:10 04/13/22 23:10 Radiology Impressions Chest X-Ray 04/13/22 22:56 IMPRESSION: Mild atelectasis left lung base. Otherwise, no acute findings. Chest CTA 04/14/22 00:53 IMPRESSION: No evident pulmonary embolic disease. Laboratory Results WBC 14.8 10^3/uL (4.0-10.0) H 04/13/22 23:10 RBC 4.53 10^6/uL (4.1-5.3) 04/13/22 23:10 Hgb 13.7 g/dL (11.7-16.6) 04/13/22 23:10 Hct 42.1 % (42.0-52.0) 04/13/22 23:10 MCV 92.9 fl (80-94) 04/13/22 23:10 MCH 30.2 pg (28.0-34.0) 04/13/22 23:10 MCHC 32.5 g/dL (30.0-36.0) 04/13/22 23:10 RDW 13.8 % (12.1-15.1) 04/13/22 23:10 Plt Count 176 10^3/cmm (130-400) 04/13/22 23:10 MPV 10.3 fL (7.4-10.4) 04/13/22 23:10 Neut % (Auto) 66.3 % 04/13/22 23:10 Lymph % (Auto) 24.4 % 04/13/22 23:10 [place] % (Auto) 7.4 % 04/13/22 23:10 Eos % (Auto) 0.9 % 04/13/22 23:10 Baso % (Auto) 0.3 % 04/13/22 23:10 Neut # (Auto) 9.77 10^3/uL (1.8-7.7) H 04/13/22 23:10 Lymph # (Auto) 3.6 10^3/uL (0.8-4.8) 04/13/22 23:10 [place] # (Auto) 1.1 10^3/uL (0.2-0.9) H 04/13/22 23:10 Eos # (Auto) 0.1 10^3/uL (0.0-0.8) 04/13/22 23:10 Baso # (Auto) 0.1 10^3/uL (0.0-0.1) 04/13/22 23:10 Nucleated RBC % (auto) 0 % 04/13/22 23:10 Nucleated RBCs # 0.0 /100WBC 04/13/22 23:10 D-Dimer 1.10 ug/mIFEU (0-0.59) H 04/13/22 23:10 Sodium 138 mmol/L (136-145) 04/13/22 23:10 Potassium 4.0 mmol/L (3.5-5.1) 04/13/22 23:10 Chloride 101 mmol/L (98-107) 04/13/22 23:10 Carbon Dioxide 24 mmol/L (22-29) 04/13/22 23:10 Anion Gap 17.0 (5-19) 04/13/22 23:10 BUN 21 mg/dL (8-23) 04/13/22 23:10 Creatinine 1.1 mg/dL (0.7-1.2) 04/13/22 23:10 GFR Calculation Not Reportable 04/13/22 23:10 Glucose 100 mg/dL (65-115) 04/13/22 23:10 Calculated Osmolality 289 mOsm/kg (285-295) 04/13/22 23:10 Calcium 8.9 mg/dL (8.5-10.5) 04/13/22 23:10 Total Bilirubin 0.5 mg/dL (0.15-1.2) 04/13/22 23:10 AST 19 U/L (0-40) 04/13/22 23:10 ALT 13 U/L (0-41) 04/13/22 23:10 Alkaline Phosphatase 94 U/L (40-130) 04/13/22 23:10 Troponin T Baseline 14 ng/L (0-15) 04/13/22 23:10 Troponin T 120 Minute 13.80 ng/L (0-15) 04/14/22 00:42 Delta Troponin T -0.20 ABS# (0-10) L 04/14/22 00:42 Total Protein 6.5 g/dL (6.6-8.7) L 04/13/22 23:10 Albumin 4.6 g/dL (3.5-5.2) 04/13/22 23:10 Globulin 1.9 g/dL (1.3-4.6) 04/13/22 23:10 EKG Data EKG 1: I personally reviewed and interpreted this EKG as follows: EKG interpretation date: 04/13/22 EKG interpretation time: 23:03 Interpretation: nsr hr [address] or t wave abnormalities qrs 94 qtc 411 EKG 2: I personally reviewed and interpreted this EKG as follows: EKG interpretation date: 04/14/22 EKG interpretation time: 00:43 Interpretation: nsr hr [address] or t wave abnormalities qrs 93 qtc 388 Discharge Plan Discharge Patient Disposition: Home Clinical Impression: Chest pain Condition: Stable Prescriptions: No Action clopidogrel [Plavix] 75 mg tablet 75 mg PO DAILY Qty: 90 3RF Discharge Orders: Discharge ED (Routine); Ordered 04/14/22 Ordered By: Megan Mitchell Referrals: Shira Paul MD [Primary Care Provider] - 1-3 days Discharge Diet: Advance as tolerated Discharge Activity: Resume usual activity Patient Instructions: Chest Pain (ED) Coding Level of Care Code ED Data Processing Equipment Repairer for Darinel Vela
[2022-04-13 23:15] VITALS: BP 155/87
[2022-04-13] MEDS: aspirin 81 mg Chew Tablet 324 MG PO (23:19)
[2022-04-13 23:29] LABS: Basophils # 0.1 10^3/uL (0.0-0.1); Basophils % 0.3 %; Eosinophils # 0.1 10^3/uL (0.0-0.8); Eosinophils % 0.9 %; Hematocrit 42.1 % (42.0-52.0); Hemoglobin 13.7 g/dL (11.7-16.6); Lymphocytes # 3.6 10^3/uL (0.8-4.8); Lymphocytes % 24.4 %; Mean Corpuscular HGB Conc 32.5 g/dL (30.0-36.0); Mean Corpuscular Hemoglobin 30.2 pg (28.0-34.0); Mean Corpuscular Volume 92.9 fl (80-94); Mean Platelet Volume 10.3 fL (7.4-10.4); Monocytes # 1.1 10^3/uL (0.2-0.9); Monocytes % 7.4 %; Neutrophils # 9.77 10^3/uL (1.8-7.7); Neutrophils % 66.3 %; Nucleated Red Blood Cells % 0 %; Platelet Count 176 10^3/cmm (130-400); Red Blood Count 4.53 10^6/uL (4.1-5.3); Red Cell Distribution Width 13.8 % (12.1-15.1); White Blood Count 14.8 10^3/uL (4.0-10.0)
[2022-04-13 23:52] LABS: Troponin(5th) Baseline 14 ng/L (0-15)
[2022-04-13 23:55] LABS: Alanine Aminotransferase 13 U/L (0-41); Albumin Level 4.6 g/dL (3.5-5.2); Alkaline Phosphatase 94 U/L (40-130); Aspartate Amino Transferase 19 U/L (0-40); Blood Urea Nitrogen 21 mg/dL (8-23); Calcium 8.9 mg/dL (8.5-10.5); Carbon Dioxide 24 mmol/L (22-29); Chloride 101 mmol/L (98-107); Globulin 1.9 g/dL (1.3-4.6); Glucose 100 mg/dL (65-115); Osmolality Calculated 289 mOsm/kg (285-295); Sodium 138 mmol/L (136-145); Total Bilirubin 0.5 mg/dL (0.15-1.2); Total Protein 6.5 g/dL (6.6-8.7)
[2022-04-13 23:59] VITALS: BP 136/70; O2SAT 96
[2022-04-14 00:06] VITALS: BP 139/72; PULSE 71; RESP 16; O2SAT 95
--- NOTE | 2022-04-14 00:53 | CTR_ITS ---
PROCEDURE INFORMATION: Exam: CTA Chest With Contrast Exam date and time: 04/14/2022 1:01 AM Age: 86 years old Clinical indication: Pain and abnormal findings; Abnormal diagnostic tests; Elevated d-dimer; Shortness of breath; Chest pressure; Patient HX: C/O chest discomfort with SOB. Elevated d dimer. History of prostate cancer. ; Additional info: Cp TECHNIQUE: Imaging protocol: Computed tomographic angiography of the chest with contrast. 3D rendering (Not supervised by radiologist): MIP and/or 3D reconstructed images were created by the technologist. Radiation optimization: All CT scans at this facility use at least one of these dose optimization techniques: automated exposure control; mA and/or kV adjustment per patient size (includes targeted exams where dose is matched to clinical indication); or iterative reconstruction. Contrast material: OMNI 350; Contrast volume: 64 ml; Contrast route: INTRAVENOUS (IV); Other protocol: This patient has received 2 known CTs and 0 known cardiac nuclear medicine studies in the 12 months prior to the current study. COMPARISON: CR (CHEST, ) 04/13/2022 11:10 PM RADIATION DOSE METRICS: Total DLP (mGy-cm): 432.51 FINDINGS: Pulmonary arteries: Normal. No pulmonary emboli. Aorta: No aortic aneurysm. No aortic dissection. Lungs: Mild dependent pulmonary parenchymal opacities likely represent atelectasis. Pleural spaces: No pneumothorax. No pleural effusion. Heart: No cardiomegaly. No pericardial effusion. Lymph nodes: No enlarged lymph nodes. Bones/joints: No acute fracture. Soft tissues: Unremarkable. CT/CT angio chest PE protcl [id number] IMPRESSION: No evident pulmonary embolic disease.
--- NOTE | 2022-04-14 00:56 | ECG_ITS ---
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 Measurements Intervals [place] Rate: 66 P: 27 OR: 196 QRS: -27 QRSD: 93 T: 48 QT: 374 QTc: 394 Interpretive Statements SINUS RHYTHM POSSIBLE ANTERIOR MYOCARDIAL INFARCTION , OF INDETERMINATE AGE [30 ms Q WAVE IN V3/V4, OR R < 0.2 mV IN V4] Compared to ECG 04/13/2022 23:03:06 No significant changes Electronically Signed On 04-14-2022 20:09:00 [employer] ROUTEMAN by Josse Brumfield M.D. [id number]
[2022-04-14] MEDS: iohexol 350 mg/mL 500 mL Btl (per mL) IV (01:09)
[2022-04-14 01:11] VITALS: BP 145/71; PULSE 77; RESP 16; O2SAT 100
[2022-04-14 02:07] VITALS: BP 138/67; PULSE 73; RESP 16; O2SAT 94
== END 2022-04-14 02:08 | disposition home or self-care (01) ==
PROVIDERS: Emergency Provider Emergency Medicine; PCP Family Medicine
DX: R07.9 Chest pain, unspecified
CPT/HCPCS: 71045; 71275; 80053; 84484; 85025; 85378; 93005; 99285; Q9967

== ENCOUNTER 2022-04-21 09:01 | Day surgery (SDC) | payer MEDICARE, SELFPAY ==
[2022-04-20 10:13] VITALS: BMI 29.2
--- NOTE | 2022-04-20 10:27 | ANES.PREANE2 ---
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 There is severe single vessel coronary artery disease. ? Mid Right Coronary Artery was treated with two Balloon and Drug Eluting Stent. Recommendations ? Aspirin and Plavix for at least 1 year. ? High intensity statin therapy with atorvastatin 40 mg daily. None reported Hepatic None reported GI None reported Musc/skel None reported Anesthetic Plan ASA status: 3 Anesthesia: MAC Risk of > 500 ml blood loss (7ml/kg in children): No Medications/Allergies Home Medications Medication Instructions Recorded Confirmed Last Taken Type clopidogrel 75 mg tablet (Plavix) 75 mg PO DAILY #90 tabs 06/29/21 04/20/22 04/19/22 Rx nitroglycerin 0.4 mg sublingual 0.4 mg sublingual Q5M PRN chest 04/18/22 04/20/22 Unknown Rx tablet pain #30 tabs Allergies Allergy/AdvReac Type Severity Reaction Status Date / Time No Known Allergies Allergy Verified 04/18/22 07:01 [facility] Anesthesia Medical History Cellulitis of scrotum Colovesical fistula Coronary artery disease Diverticula of colon Diverticulitis HTN (hypertension) Prostate cancer Urinary incontinence Surgical History History of colon surgery Hx of cholecystectomy Hx of knee surgery Hx of prostatectomy Hx of resection of large bowel S/P coronary angioplasty Severe RCA stenosis s/p PCI with DEMARIO X 1 Status post right inguinal hernia repair (~01/04/21) Family History Father CAD (coronary artery disease) Social History Smoking and tobacco status: former smoker Alcohol intake: current Alcohol intake frequency: holidays/special occasions only Adopted: No Caregiver/support person: No Lives independently: Yes Marital status: Current occupational status: retired Data Anesthesia Cardiac Studies: No Data to Display
[2022-04-21 09:16] VITALS: BP 152/98; PULSE 57; RESP 16; TEMP 36.3; O2SAT 99
[2022-04-21] MEDS: sodium chloride 0.9% 1,000 ML 30 ML IV (09:29)
--- NOTE | 2022-04-21 09:59 | ANES.PREANE2 ---
Pre-Anesthetic Assessment Height/Weight: Height 1.78 m Weight 92.533 kg Temp Pulse Resp BP Pulse Ox O2 Del Method 97.3 F L 57 L 16 152/98 99 04/21/22 09:16 04/21/22 09:16 04/21/22 09:16 04/21/22 09:16 04/21/22 09:16 04/21/22 09:16 Preop Diagnosis: Symptomatic reducible right inguinal hernia Operation Date: 04/21/22 10:30 Proposed Procedures p 82789 - EGD W/ balloon Dilation,R13.10(Not Applicable) - Abdiel Casey, DO Was Beta Emilia taken within 24 hours: N/A Was Clonidine taken within 24 hours: N/A Last intake: Intake Last Liquid Date 04/20/22 Last Liquid Time 20:00 Last Solid Date 04/20/22 Last Solid Time 20:00 Last Intake: 20:00 Exam alert and oriented x 3 Airway Submandibular: within normal limits Cervical ROM: within normal limits Mallampati: Class II Dentition: partials History/ROS No significant history except as noted Pulmonary None reported denies SOB with activity CV/HEM Coronary Artery Disease, Congestive Heart Failure (Had stent 3 yrs ago) and Myocardial Infarction (denies CP never use NTG) None reported Hepatic None reported GI dysphagia, pills get caught Metabolic None reported Musc/skel None reported Neuropsych Cerebrovascular Accident (2 years ago; slow speech) Anesthetic Plan ASA status: 3 Anesthesia: Anesthesia Evaluation and MAC Risk of > 500 ml blood loss (7ml/kg in children): No Medications/Allergies Home Medications Medication Instructions Recorded Confirmed Last Taken Type clopidogrel 75 mg tablet (Plavix) 75 mg PO DAILY #90 tabs 06/29/21 04/20/22 04/19/22 Rx nitroglycerin 0.4 mg sublingual 0.4 mg sublingual Q5M PRN chest 04/18/22 04/20/22 Unknown Rx tablet pain #30 tabs Allergies Allergy/AdvReac Type Severity Reaction Status Date / Time No Known Allergies Allergy Verified 04/18/22 07:01 Current Medications Generic Name Dose Route Start Last Admin Trade Name Freq PRN Reason Stop Dose Admin Sodium Chloride 1,000 mls @ 30 mls/hr 04/21/22 09:15 04/21/22 09:29 Sodium Chloride 0.9% IV 02/24/23 09:14 30 mls/hr .Q24H RAFA Administration PFSH Anesthesia Medical History Cellulitis of scrotum Colovesical fistula Coronary artery disease Diverticula of colon Diverticulitis HTN (hypertension) Prostate cancer Urinary incontinence Surgical History History of colon surgery Hx of cholecystectomy Hx of knee surgery Hx of prostatectomy Hx of resection of large bowel S/P coronary angioplasty Severe RCA stenosis s/p PCI with DEMARIO X 1 Status post right inguinal hernia repair (~01/04/21) Family History Father CAD (coronary artery disease) Social History Smoking and tobacco status: former smoker Alcohol intake: current Alcohol intake frequency: holidays/special occasions only Adopted: No Caregiver/support person: No Lives independently: Yes Marital status: Current occupational status: retired History of recent travel: No Data Anesthesia Cardiac Studies: No Data to Display
--- NOTE | 2022-04-21 10:21 | W.PM.OPSUD ---
Surgery/Procedure H&P Update DATE OF PROCEDURE: April 21, 2022 DATE H&P PERFORMED: 04/05/22 H&P UPDATE INFORMATION: I have reviewed H&P completed within last 30 days, I have examined patient prior to procedure and No changes to prior documentation PREOP DIAGNOSIS: Symptomatic reducible right inguinal hernia PLANNED PROCEDURE: Operation Date: 04/21/22 10:30 Proposed Procedures p 96132 - EGD W/ balloon Dilation,R13.10(Not Applicable) - Abdiel Casey DO
[2022-04-21 10:49] VITALS: BP 115/67; PULSE 51; RESP 10; TEMP 36.2; O2SAT 97
[2022-04-21 11:04] VITALS: BP 115/64; PULSE 56; RESP 18; O2SAT 98
--- NOTE | 2022-04-21 13:28 | ANE.PACU2 ---
Inpatient post-anesthesia follow up: Airway intact: Yes Vital signs: Temperature 97.1 F Pulse Rate 56 Respiratory Rate 18 Blood Pressure 115/64 Pulse Oximetry 98 Oxygen Delivery Me thod Room Air Oxygen Flow Rate Fraction of Inspir ed Oxygen Hydration adequate: Yes Nausea and vomiting: No Pain level: 1 Mental status: Baseline
== END 2022-04-21 11:22 | disposition home or self-care (01) ==
PROVIDERS: PCP Family Medicine; Visit Provider Surgery
DX: R13.10 Dysphagia, unspecified (principal); K22.2 Esophageal obstruction; K44.9 Diaphragmatic hernia without obstruction or gangrene; K31.7 Polyp of stomach and duodenum; I25.10 Atherosclerotic heart disease of native coronary artery without angina pectoris; I11.0 Hypertensive heart disease with heart failure; I50.9 Heart failure, unspecified; Z95.5 Presence of coronary angioplasty implant and graft; I25.2 Old myocardial infarction; Z86.73 Personal history of transient ischemic attack (TIA), and cerebral infarction without residual deficits; Z87.891 Personal history of nicotine dependence; Z85.46 Personal history of malignant neoplasm of prostate
CPT/HCPCS: 43239; 43249; 88305; J2704; J7030

== ENCOUNTER → 2022-05-05 16:30 | Outpatient (BNVA) | payer MEDICARE, SELFPAY | PROVIDERS: PCP Family Medicine; Visit Provider Surgery | DX: Z09 Encounter for follow-up examination after completed treatment for conditions other than malignant neoplasm (principal) | CPT/HCPCS: 99024; 99212 ==

== ENCOUNTER → 2022-05-17 13:07 | Outpatient (BNVA) | payer MEDICARE, SELFPAY | PROVIDERS: PCP Family Medicine; Referring Provider Family Medicine; Visit Provider Orthopaedic Surgery | DX: M48.02 Spinal stenosis, cervical region (principal); M47.812 Spondylosis without myelopathy or radiculopathy, cervical region; M48.12 Ankylosing hyperostosis [Forestier], cervical region; M40.202 Unspecified kyphosis, cervical region | CPT/HCPCS: 72050; 99203 ==

== ENCOUNTER → 2022-06-14 13:27 | Outpatient (BNVA) | payer MEDICARE, SELFPAY | PROVIDERS: PCP Family Medicine; Visit Provider Internal Medicine Cardiovascular Disease | DX: I25.119 Atherosclerotic heart disease of native coronary artery with unspecified angina pectoris (principal); E78.5 Hyperlipidemia, unspecified; Z98.61 Coronary angioplasty status; I10 Essential (primary) hypertension; Z86.73 Personal history of transient ischemic attack (TIA), and cerebral infarction without residual deficits; Z87.891 Personal history of nicotine dependence | CPT/HCPCS: 99213 ==

== ENCOUNTER 2022-09-27 11:23 | Outpatient (CLI) | payer MEDICARE, SELFPAY ==
--- NOTE | 2022-09-27 11:36 | XRR_ITS ---
PROCEDURE INFORMATION: Exam: XR Left Hip Exam date and time: 09/27/2022 11:41 AM Age: 86 years old Clinical indication: Hip pain; Left hip; Additional info: Left hip pain p 2 weeks TECHNIQUE: Imaging protocol: Radiologic exam of the left hip. Views: 2 or 3 views hip with pelvis when performed. COMPARISON: CT abdomen pelvis wo/w [id number] 03/30/2020 12:30 PM FINDINGS: Bones/joints: No acute fracture or dislocation. Mild superolateral joint space narrowing. Mild lower lumbar spine degenerative changes. Soft tissues: Unremarkable. Intraperitoneal space: Postsurgical changes at the pelvis. XR/XR hip LT 2-3V wo/w pel* [id number] IMPRESSION: 1. No acute findings. 2. Mild left hip degenerative changes.
== END 2022-09-27 11:24 | disposition home or self-care (01) ==
PROVIDERS: PCP Family Medicine; Visit Provider Family Medicine
DX: M70.62 Trochanteric bursitis, left hip (principal)
CPT/HCPCS: 73502

== ENCOUNTER → 2022-11-17 10:42 | Outpatient (BNVA) | payer MEDICARE, SELFPAY | PROVIDERS: PCP Family Medicine; Visit Provider Nurse Practitioner Family | DX: R39.9 Unspecified symptoms and signs involving the genitourinary system (principal) | CPT/HCPCS: 81000; 87086 ==

== ENCOUNTER → 2022-11-21 12:48 | Outpatient (BNVA) | payer MEDICARE, SELFPAY | PROVIDERS: PCP Family Medicine; Visit Provider Family Medicine | DX: I10 Essential (primary) hypertension (principal); E78.5 Hyperlipidemia, unspecified; E03.9 Hypothyroidism, unspecified; N39.45 Continuous leakage | CPT/HCPCS: 80053; 81000; 85025 ==

== ENCOUNTER → 2023-06-12 11:57 | Outpatient (BNVA) | payer MEDICARE, SELFPAY | PROVIDERS: PCP Family Medicine; Visit Provider Internal Medicine Cardiovascular Disease | DX: I25.119 Atherosclerotic heart disease of native coronary artery with unspecified angina pectoris (principal); I10 Essential (primary) hypertension; Z98.61 Coronary angioplasty status; E78.5 Hyperlipidemia, unspecified; E03.9 Hypothyroidism, unspecified; Z86.73 Personal history of transient ischemic attack (TIA), and cerebral infarction without residual deficits; Z87.891 Personal history of nicotine dependence | CPT/HCPCS: 99213 ==

== ENCOUNTER → 2023-07-03 10:17 | Outpatient (BNVA) | payer MEDICARE, SELFPAY | PROVIDERS: PCP Family Medicine; Visit Provider Family Medicine | DX: E03.9 Hypothyroidism, unspecified (principal); E78.5 Hyperlipidemia, unspecified; I10 Essential (primary) hypertension | CPT/HCPCS: 80053; 84443; 85025 ==

== ENCOUNTER 2023-07-10 15:50 | Outpatient (CLI) | payer MEDICARE, SELFPAY ==
--- NOTE | 2023-07-10 16:00 | USCV_ITS ---
Eric Bailey Age: 87 Gender: M : 1935 Exam Date: 07/10/2023 16:01 Ordering Phys: Shira Paul MD Technologist: CT Exam [facility]: [facility] [place] Indication: vision problems Risk Factors: Previous Vascular Surgery: Right Brachial BP: / Left Brachial BP: / Right Left Velocity (cm/s) Spectral Plaque Velocity (cm/s) Spectral Plaque Syst/Diast Broadening Syst/Diast Broadening 104.20/12.20 Prox CCA 127.40/ 16.30 112.80/16.50 Mid CCA 133.10/ 18.00 132.60/19.40 Distal CCA 94.90 / 19.90 58.90/ 9.40 Prox ICA 60.90 / 12.60 68.50/ 12.60 Mid ICA 65.20 / 14.40 73.30/ 17.10 Distal ICA 59.10 / 14.40 108.70 ECA 66.20 0.60 ICA/CCA 0.70 Antegrade Vertebral Antegrade 44.30/ 6.20 cm/s 42.50/ 6.70 cm/s Bi Subclavian Bi 99.80 63.50 FINDINGS comp 06/24/21 velocities are stable compared to 2021 CONCLUSIONS Intimal thickening in the common carotid arteries and internal carotid arteries bilaterally. Right ICA stenosis <50%. Mild atheromatous plaque right carotid bulb/ICA. Left ICA stenosis <50%. Mild atheromatous plaque left carotid bulb/ICA. Normal antegrade Doppler flow noted in the right vertebral artery. Normal antegrade Doppler flow noted in the left vertebral artery. Esa Martinez MD (Electronically Signed) Final Date: 10 Jul 2023 17:11 S
== END 2023-07-10 15:51 | disposition home or self-care (01) ==
LOC: RAD 15:51
PROVIDERS: PCP Family Medicine; Visit Provider Family Medicine
DX: I63.411 Cerebral infarction due to embolism of right middle cerebral artery (principal); I25.119 Atherosclerotic heart disease of native coronary artery with unspecified angina pectoris; I65.21 Occlusion and stenosis of right carotid artery; I65.22 Occlusion and stenosis of left carotid artery
CPT/HCPCS: 93880

== ENCOUNTER → 2024-03-26 12:18 | Outpatient (BNVA) | payer MEDICARE, SELFPAY | PROVIDERS: PCP Family Medicine; Visit Provider Family Medicine | DX: I10 Essential (primary) hypertension (principal); E03.9 Hypothyroidism, unspecified; E78.5 Hyperlipidemia, unspecified | CPT/HCPCS: 80053; 84443; 85025 ==

== ENCOUNTER → 2024-06-04 10:51 | Outpatient (BNVA) | payer MEDICARE, SELFPAY | PROVIDERS: PCP Family Medicine; Visit Provider Family Medicine | DX: N39.45 Continuous leakage (principal); R30.0 Dysuria | CPT/HCPCS: 81000 ==

== ENCOUNTER → 2024-07-18 12:26 | Outpatient (BNVA) | payer MEDICARE, SELFPAY | PROVIDERS: PCP Family Medicine; Visit Provider Internal Medicine | DX: I25.119 Atherosclerotic heart disease of native coronary artery with unspecified angina pectoris (principal); I10 Essential (primary) hypertension; E78.5 Hyperlipidemia, unspecified; E03.9 Hypothyroidism, unspecified; Z79.01 Long term (current) use of anticoagulants; Z86.73 Personal history of transient ischemic attack (TIA), and cerebral infarction without residual deficits; Z95.5 Presence of coronary angioplasty implant and graft | CPT/HCPCS: 99214 ==

== ENCOUNTER → 2024-11-04 10:28 | Outpatient (BNVA) | payer MEDICARE, SELFPAY | PROVIDERS: PCP Family Medicine; Visit Provider Family Medicine | DX: I10 Essential (primary) hypertension (principal); E03.9 Hypothyroidism, unspecified | CPT/HCPCS: 80053; 84443; 85025 ==